=== PATIENT | female | born 1945 | race Caucasian/White ===

== ENCOUNTER 2017-03-09 05:59 | Emergency (ER) | payer MEDICARE, OTHER ==
[~2017-03-09] VITALS: Ht 162.6 cm; Wt 82.0 kg
[~2017-03-09 05:59] MED LIST: AMLO5TAB96 PO; BUPR150T3 PO; ESTR0.1D3 PO; HYDR-2768 PO; LEXA10TA PO
[2017-03-09 06:06] VITALS: BP 152/76; PULSE 65; RESP 16; TEMP 98.4; O2SAT 97
--- NOTE | 2017-03-09 06:14 | PD ---
HPI Chief Complaint: flank pain Time Seen by Provider: 06:12 Travel History International Travel<30 days: No Contact w/Intl Traveler<30days: No History of Present Illness HPI This is a 71-year-old female who presents the emergency department with onset of left-sided flank pain, constant, sharp, severe that started last evening associated with nausea but no vomiting. She denies any fevers or chills and denies any dysuria. She says this feels similar when she's had kidney stones in the past. She says she's never required an intervention for her kidney stones. PFSH Past Medical History Depression: Yes Cancer: No Diabetes: No Hepatitis: No Hiatal Hernia: No Hypertension: Yes Psychiatric: Yes (MOOD SWINGS) Thyroid Disease: No Past Surgical History Abdominal Surgery: No Cardiac Surgery: No Ear Surgery: No Endocrine Surgery: No Eye Surgery: Yes (LEFT CATARACT EXTRACT.) Genitourinary Surgery: No Gynecologic Surgery: Yes (HYSTERECTOMY) Hysterectomy: Yes (1992) Oral Surgery: No Pacemaker: No Thoracic Surgery: No Social History Alcohol Use: Yes (1 BEER YESTERDAY) Tobacco Use: No Allergies-Medications (Allergen,Severity, Reaction): Coded Allergies: Penicillin (Verified Allergy, Mild, HIVES, 03/09/17) Reported Meds & Prescriptions Reported Meds & Active Scripts Active Reported Amlodipine (Amlodipine Besylate) 5 Mg Tab 5 Mg PO HS Lovastatin 20 Mg Tab 20 Mg PO HS Hydrochlorothiazide 25 Mg Tab 25 Mg PO HS Review of Systems Except as stated in HPI: all other systems reviewed are Neg Physical Exam Narrative GENERAL: Uncomfortable, pacing in the room SKIN: Focused skin assessment warm and dry. HEAD: Atraumatic. Normocephalic. EYES: Pupils equal and round. No injection or drainage. ENT: Moist mucous membranes NECK: Trachea midline. CARDIOVASCULAR: Regular rate and rhythm. No murmur appreciated. RESPIRATORY: Clear to auscultation. Breath sounds equal bilaterally. GASTROINTESTINAL: Abdomen soft, non-tender, nondistended. : Left CVA tenderness. MUSCULOSKELETAL: No obvious deformities. NEUROLOGICAL: Awake and alert. No obvious cranial nerve deficits. Moving all extremities. PSYCHIATRIC: Appropriate mood and affect; insight and judgment normal. Data Data Last Documented VS Vital Signs Date Time Temp Pulse Resp B/P Pulse Ox O2 Delivery O2 Flow Rate FiO2 03/09/17 06:31 Room Air 03/09/17 06:06 98.4 65 16 152/76 97 Orders Complete Blood Count With Diff (03/09/17 06:12) Comprehensive Metabolic Panel (03/09/17 06:12) Urinalysis - C+S If Indicated (03/09/17 06:12) Ct Abd/Pel W/O Iv Contrast (03/09/17 06:12) Iv Access Insert/Monitor (03/09/17 06:12) Ecg Monitoring (03/09/17 06:12) Oximetry (03/09/17 06:12) Sodium Chloride 0.9% Flush (Ns Flush) (03/09/17 06:15) Morphine Inj (Morphine Inj) (03/09/17 06:15) Sodium Chlor 0.9% 1000 Ml Inj (Ns 1000 M (03/09/17 06:15) Ondansetron Inj (Zofran Inj) (03/09/17 06:15) Morphine Inj (Morphine Inj) (03/09/17 06:45) Labs Laboratory Tests Test 03/09/17 06:20 White Blood Count 11.5 TH/MM3 Red Blood Count 4.57 MIL/MM3 Hemoglobin 14.2 GM/DL Hematocrit 42.3 % Mean Corpuscular Volume 92.5 FL Mean Corpuscular Hemoglobin 31.0 PG Mean Corpuscular Hemoglobin 33.5 % Concent Red Cell Distribution Width 13.4 % Platelet Count 277 TH/MM3 Mean Platelet Volume 9.9 FL Neutrophils (%) (Auto) 76.4 % Lymphocytes (%) (Auto) 17.4 % Monocytes (%) (Auto) 4.4 % Eosinophils (%) (Auto) 1.2 % Basophils (%) (Auto) 0.6 % Neutrophils # (Auto) 8.8 TH/MM3 Lymphocytes # (Auto) 2.0 TH/MM3 Monocytes # (Auto) 0.5 TH/MM3 Eosinophils # (Auto) 0.1 TH/MM3 Basophils # (Auto) 0.1 TH/MM3 CBC Comment DIFF FINAL Differential Comment Sodium Level 141 MEQ/L Potassium Level 3.4 MEQ/L Chloride Level 105 MEQ/L Carbon Dioxide Level 26.3 MEQ/L Anion Gap 10 MEQ/L Blood Urea Nitrogen 23 MG/DL Creatinine 1.80 MG/DL Estimat Glomerular Filtration 28 ML/MIN Rate Random Glucose 132 MG/DL Calcium Level 9.3 MG/DL Total Bilirubin 0.6 MG/DL Aspartate Amino Transf 12 U/L (AST/SGOT) Alanine Aminotransferase 16 U/L (ALT/SGPT) Alkaline Phosphatase 102 U/L Total Protein 8.1 GM/DL Albumin 3.5 GM/DL [facility] Medical Decision Making Medical Screen Exam Complete: Yes Emergency Medical Condition: Yes Interpretation(s) Afebrile, no tachycardia, hypertensive Mild leukocytosis Renal insufficiency, unclear if acute or chronic CT abdomen and pelvis: 4 mm stone in the left ureter with mild to moderate hydronephrosis Differential Diagnosis Nephrolithiasis, obstructive uropathy, pyelonephritis, ruptured abdominal aortic aneurysm Narrative Course This is a 71-year-old female who presents to the emergency department with left- sided flank pain that started last evening. She is placed on a monitor and an IV was established. Labs are obtained which demonstrates a renal insufficiency which may be chronic. She says Dr. Smith recently did labs on her and told her that her kidney function was not good and he added an additional blood pressure medication which she's not been taking. CT demonstrates a 4 mm stone on the left with some hydronephrosis. Patient was given IV fluids, opiates and antiemetics. If she feels better she can be discharged home and follow-up with urology. Diagnosis Primary Impression: Kidney stone Patient Instructions: General Instructions Additional Instructions: If you develop severe pain, inability to eat or drink, or fever return to the emergency department. Use a strainer to try to catch your stone. Take Lortab as needed for pain, and continue taking zofran as needed for nausea. Follow up with urology as soon as possible. Med/Other Pt SpecificInfo: Prescription(s) given Scripts Ondansetron Odt (Zofran Odt)4 Mg Tab4 Mg SL Q6HR PRN (Nausea/Vomiting) #10 TAB Ref 0 Prov:Chetna Rodriguez MD 03/09/17 Hydrocodone-Acetaminophen (Lortab)5-325 Mg Tab1 Tab PO Q6H PRN (PAIN) #10 TAB Ref 0 Prov:Chetna Rodriguez MD 03/09/17 Disposition: 01 DISCHARGE HOME Condition: Stable Chetna Rodriguez MD Mar 09, 2017 06:14
[2017-03-09] MEDS ORDERED: SODIUM CHLORIDE 0.9% FLUSH 10 ML FLUSH IV FLUSH PRN (06:15)
[2017-03-09] MEDS ORDERED: ONDANSETRON HCL 4 MG/2 ML VIAL IV PUSH ONE (06:15)
[2017-03-09] MEDS ORDERED: MORPHINE SULFATE 4 MG/ML INJ IV PUSH ONE ×2 (06:15→06:45)
[2017-03-09] MEDS ORDERED: SODIUM CHLOR 0.9% 1000 ML INJ 1,000 ML IV ONE (06:15)
[2017-03-09 06:34] LABS: AUTOMATED NEUTROPHIL # 8.8 TH/MM3 (1.8-7.7); BASOPHIL # 0.1 TH/MM3 (0-0.2); BASOPHIL % 0.6 % (0.0-2.0); EOSINOPHIL # 0.1 TH/MM3 (0-0.4); EOSINOPHIL % 1.2 % (0.0-4.0); HEMATOCRIT 42.3 % (35.0-46.0); LYMPH % 17.4 % (9.0-44.0); MEAN CELL VOLUME 92.5 FL (80.0-100.0); MEAN CORPUSCULAR HGB CONC 33.5 % (32.0-36.0); MONO % 4.4 % (0.0-8.0); NEUT % 76.4 % (16.0-70.0); PLATELET COUNT 277 TH/MM3 (150-450); RED BLOOD COUNT 4.57 MIL/MM3 (4.00-5.30); RED CELL DISTRIBUTION WIDTH 13.4 % (11.6-17.2); WHITE BLOOD COUNT 11.5 TH/MM3 (4.0-11.0)
[2017-03-09 06:41] LABS: CHLORIDE 105 MEQ/L (98-107); POTASSIUM 3.4 MEQ/L (3.5-5.1); SODIUM (NA) 141 MEQ/L (136-145)
[2017-03-09] MEDS ORDERED: AMLO5TAB2 PO (06:43)
[2017-03-09] MEDS ORDERED: LOVA20TA PO (06:43)
[2017-03-09] MEDS ORDERED: HYDR25TA5 PO (06:43)
[2017-03-09 06:45] LABS: ANION GAP 10 MEQ/L (5-15); BICARBONATE 26.3 MEQ/L (21.0-32.0); BLOOD UREA NITROGEN 23 MG/DL (7-18)
--- NOTE | 2017-03-09 06:47 | RADHPO ---
EXAM DATE/TIME: 03/09/2017 06:24 [facility] COMPARISON: No previous studies available for comparison. INDICATIONS : Left flank pain. ORAL CONTRAST: No oral contrast ingested. RADIATION DOSE: 26.91 CTDIvol (mGy) MEDICAL HISTORY : Hypertension. Renal calculi. SURGICAL HISTORY : Hysterectomy. ENCOUNTER: Initial ACUITY: 1 day PAIN SCALE: 10/10 LOCATION: Left flank TECHNIQUE: Volumetric scanning of the abdomen and pelvis was performed. Using automated exposure control and ad justment of the mA and/or kV according to patient size, radiation dose was kept as low as reasonably achievable to obtain optimal diagnostic quality images. FINDINGS: No prior study for comparison. There is a mildly radiopaque calculus in the proximal left ureter jenny uring about 4 mm in diameter resulting in left sided obstructive uropathy and mild to moderate left h ydronephrosis. There are numerous additional nonobstructing calculi in both kidneys measuring up to a bout 2 mm in diameter on the left and 4 mm in diameter lower pole right kidney. Numerous parapelvic c ysts present in the kidneys bilaterally. Lung bases clear except linear scarring. Hepatic cysts present. Spleen, adrenals and pancreas unremar kable. Large 3.3 cm calcified gallstone. There is some nonspecific minimal stranding in the mesentery. No bowel obstruction. No free air or fr ee fluid. Mild constipation. CONCLUSION: 1. Approximately 4 mm calculus in proximal left ureter with left-sided obstructive uropathy and mild to moderate hydronephrosis. Additional nonobstructing calculi in both kidneys. 2. Large 3.3 cm calcified gallstone without biliary ductal dilatation. 3. Mild constipation. Dwayne Aguilar MD on March 09, 2017 at 6:41 Board Certified Radiologist. This report was verified electronically.
[2017-03-09 06:48] LABS: ALT (GPT) 16 U/L (10-53); AST (GOT) 12 U/L (15-37); GLOMERULAR FILTRATION RATE 28 ML/MIN (>89); HEMO FLAGS DIFF FINAL
[2017-03-09 06:50] LABS: TOTAL BILIRUBIN ADULT 0.6 MG/DL (0.2-1.0)
[2017-03-09 06:51] LABS: ALKALINE PHOSPHATASE 102 U/L (45-117)
[2017-03-09] MEDS ORDERED: HYDR-3533 PO (06:56)
[2017-03-09] MEDS ORDERED: ZOFR4TAB3 SL (06:56)
[2017-03-09 07:18] VITALS: BP 142/72; PULSE 68; RESP 18; O2SAT 98
[2017-03-09] MEDS ORDERED: KETOROLAC TROMETHAMINE 60 MG/2 ML (IM) VIAL IM ONE (08:15)
[2017-03-09] MEDS ORDERED: KETOROLAC TROMETHAMINE 30 MG/ML (IVP) VIAL IV PUSH ONE (08:30)
[2017-03-09 08:35] VITALS: BP 144/70; PULSE 68; RESP 16; O2SAT 98
== END 2017-03-09 08:43 | disposition home or self-care (01) ==
LOC: PHED 05:59
DX: N20.0 Calculus of kidney (principal); Z88.0 Allergy status to penicillin; I10 Essential (primary) hypertension
CPT/HCPCS: 74176; 80053; 85025; 96361; 96374; 96375; 99285; J1885; J2270; J2405; J7030